=== PATIENT | female | born 1980 | race Caucasian/White ===

== ENCOUNTER 2019-05-30 06:05 | Observation (INO) | payer SELFPAY ==
[~2019-05-30] VITALS: Ht 165.1 cm; Wt 52.5 kg
[~2019-05-30 06:05] MED LIST: BACLOFEN10 MG PO; BLEPH-105 ML OS; BLEPHAMIDE EYE D5 ML OS; BUPROPION HCL200 MG PO; CEPHALEXIN500 MG PO; DULCOLAX STOOL100 MG PO; FLONASE2 SPRAY NS; HYDROCODON-ACE1 EA11 PO; IBUPROFEN600 MG PO; LEXAPRO10 MG PO; LIDOCAINE700 MG TOP; MULTIVITAMINS1 EAC7 PO; OXYCODONE HCL5 MG PO; PAMELOR10 MG PO; PEPCID20 MG PO; POTASSIUM CHLO20 ME1 PO; PSEUDOEPHEDRINE PO; PSEUDOEPHEDRINE30 MG PO; SALSALATE500 MG PO; SINGULAIR10 MG PO; XANAX XR3 MG PO; ZANAFLEX4 M1 PO; ZANTAC150 MG PO
[2019-05-30] MEDS ORDERED: EXCEDRIN EXTRA1 EAC1 PO (06:18)
--- NOTE | 2019-05-30 10:58 | NUR ---
IV SITE INTACT, NO REDNESS OR SWELLING NOTED, FLUSHES EASILY. PT REMAINS SLEEPING/OBTUNDED WITH TRANSFER FROM [facility] TO BED. PT SLIGHTLY HELPFUL WITH ROLLING TO ONE SIDE, HAS NOT OPENED EYES. VITALS ARE WNL.
--- NOTE | 2019-05-30 13:08 | NUR ---
PT SLEEPING QUIETLY, VITALS WNL, RESP EVEN AND UNLABORED, NO VISABLE DISTRESS NOTED.
--- NOTE | 2019-05-30 15:00 | NUR ---
PT ASSISTED UP TO THE BEDSIDE COMMODE TO VOID. PT ABLE TO CLEAN SELF. ONE PERSON ASSIST BACK TO BED. PT DENIES PAIN, NAUSEA, AND SOB AT THIS TIME. PT ALERT AND ORIENTED X4, SOMEWHAT FLAT AFFECT. PT REPORTS FEELING WEAK. SLIGHT BRUISE NOTED ON PT FOREHEAD, PT REPORTS "I MUST HAVE HIT MY HEAD WHEN I PASSED OUT"
--- NOTE | 2019-05-30 15:19 | NUR ---
Attempted to meet with pt for Case management assessment. She has difficulty responding and does not open eyes. Marilyn head yes or no to some questions. She does not answer most questions, marilyn head "yes" when asked if I may call her roommate for information. Called and spoke with Maya Murray. She states Brittany was residing in the house when Maya moved in with her boyfriend in March. She states Brittany is in the process of moving out.She isn't sure where she is moving. Brittany's boyfriend went to [facility] last week and he supported her. She states she and her friends found her down in the bathroom and she had stated earlier she had bloody diarrhea. She denies seeing Brittany use any DME. She does not think Brittany currently is employed. Maya Murray [phone]
--- NOTE | 2019-05-30 17:28 | NUR ---
In and spoke with Brittany who is now awake. States she is moving to [facility] for women with history of A&D use. States she was using prior to going as they drug test. States she was placed on probation last week and her financial aids officer is Alanna Disla. She has four children and they live with her ex. Does not have a PCP or current insurance. Was going to get OHP today, but was admitted to the hospital. Uses [facility] for her pharmacy. Emergency contact is her mother Yuki Villa [phone]. Will make a referral to [facility]Eli [facility]roncos[facility] for PCP and assistance with OHP.
--- NOTE | 2019-05-30 18:12 | NUR ---
PT IS AWAKE AND TALKING TO HER FRIEND AT THE BEDSIDE. PT IS CALM AND APPROPRIATE. PT HAS ALSO TALKED ON THE PHONE WITH HER MOTHER EARLIER THIS SHIFT.
--- NOTE | 2019-05-30 19:30 | NUR ---
REPORT RECEIVED FROM KAREEM MERCER. PT HAS RECENTLY GOTTEN UP TO BSC TO VOID, HR WENT FROM 80'S TO 115 WHEN UP THEN QUICKLY BACK TO 80'S WHEN IN BED. DENIES NEEDS/PAIN/NAUSEA AT THIS TIME, EATING SOME JELLO.
--- NOTE | 2019-05-30 20:16 | NUR ---
VISITOR IN TO SEE PT, PT CONT TO DENY NEEDS AT THIS TIME.
--- NOTE | 2019-05-31 00:15 | NUR ---
VISITOR IN TO SEE PT BUT PT SLEEPING.
--- NOTE | 2019-05-31 00:50 | NUR ---
UP TO BSC TO VOID THEN BACK TO BED, STATES SHE FEELS SLIGHTLY DIZZY WHEN UP, BACK TO BED. HR WENT FROM 80'S TO 118 WHILE UP AND BACK DOWN ONCE IN BED.
--- NOTE | 2019-05-31 02:00 | NUR ---
PT CONT TO SLEEP, RESTFUL, HR 70'S.
--- NOTE | 2019-05-31 04:08 | NUR ---
PT CONT TO SLEEP, HR 70'S RR 16.
--- NOTE | 2019-05-31 04:45 | NUR ---
UP TO BSC TO VOID AND BACK TO BED. DENIES PAIN/NAUSEA, STATES SHE IS HUNGRY AND LOOKING FORWARD TO BREAKFAST WANTS TO GO BACK TO SLEEP FOR NOW. HR UP TO 110 WHEN UP THEN DOWN TO 80S IN BED.
--- NOTE | 2019-05-31 07:30 | NUR ---
PATIENT RESTING IN BED AT THIS TIME. PATIENT DENEIS ANY NEEDS. CALL LIGHT IN REACH. WILL CONINUE TO CLOSELY MONITOR.
--- NOTE | 2019-05-31 09:30 | NUR ---
PATIENT RESTING IN BED. PATIENT DIET ADVANCED PER MD PAYNE. BREAKFAST ORDERED. PATIENT UP TO THE CAMMODE WITH NO ISSUES. FRESH WATER PROVIDED AT THE BEDSIDE. WILL CONTINUE TO CLOSELY MONITOR.
--- NOTE | 2019-05-31 09:30 | NUR ---
PATIENT ASSESSMENT COMPLETED. PATIENT DENEIS ABD PAIN. BOWEL TONES ACTIVE. BREKFAST ORDERED. BREATH SOUNDS CLEAR. NO BM SINCE ADMISSION. PATIENT DENEIS SOB, NAUSEA, AND DIZZINESS. NO OTHER NEEDS AT THIS TIME. WILL CONTINUE TO CLOSELY MONITOR.
--- NOTE | 2019-05-31 11:45 | NUR ---
WALKED WITH PATIENT IN THE HALLWAY PER MD PAYNES REQUEST. PATIENT WAS INITIALLY DIZZY, BUT RESOLVED WHILE WALKING. PATIENT DENIES ABD PAIN OR CRAMPING. PATIENT HAS NOT HAD ANY BLEEDING VIA RECTUM SINCE ADMISSION. PATIENT REPORT CHRONIC HEADACHES AND REQUESTING EXCEDERINE. PER MD PAYNE PATIENT MAY HAVE EXCEDERINE FOR HEADACHE. NO OTHER NEEDS AT THIS TIME. WILL CONTINUE TO CLOSELY MONITOR.
--- NOTE | 2019-05-31 12:28 | NUR ---
MD PAYNE IN TO SEE PATIENT. PATIENT TOLERATED WALKING AND HAS HAD NO BLEEDING SINCE ADMISSION. PATIENT WILL DISCHARGE HOME. PATIENT IS AGREEABLE TO PLAN. PATIENT HAS FAMILY AT THE BEDSIDE AT THIS TIME. EXCEDERINE PROVIDED FOR CHRONIC MIGRAINES. LUNCH AT THE BEDSIDE. NO OTHER NEEDS AT THIS TIME. WILL CONTINUE TO CLOSELY MONITOR.
--- NOTE | 2019-05-31 13:40 | NUR ---
DISCHARGE INSTRUCTIONS GIVEN TO PATIENT. PRINTED INFORMATION FOR THE CLINIC LOCATED HERE AT THE HOSPITAL PER MD PAYNE. PHONE NUMBER AND HOURS PROVIDED FOR PATIENT TO ESTABLISH PCP ON DISCHRAGE. IV DCD. ALL BELONGINGS SENT WITH PATIENT. OFFERED PATIENT THE FLU VACINE AND PATIENT REFUSED AND STATED "NO I DON'T WANT IT, IT ALWAYS MAKES ME SO SICK". NO OTHER NEEDS ON DISCHARGE. CALLED FOR A WHEELCHAIR RIDE TO THE LOBBY. FRIEND AT THE BEDSIDE TO GIVE HER A RIDE HOME.
--- NOTE | 2019-05-31 13:45 | NUR ---
PATIENT TAKEN TO FRONT IN WHEELCHAIR. PATIENT THEN ABLE TO AMBULATE FROM THERE. ALL BELONGINS SENT WITH PATIENT. IV DCD PRIOR TO DISCHARGE.
== END 2019-05-31 13:45 | disposition home or self-care (01) ==
LOC: ED 06:05 → CCU 06:07
PROVIDERS: ADMIT Internal Medicine
DX: K92.2 Gastrointestinal hemorrhage, unspecified (principal); R55 Syncope and collapse; F17.200 Nicotine dependence, unspecified, uncomplicated; G43.909 Migraine, unspecified, not intractable, without status migrainosus; F19.10 Other psychoactive substance abuse, uncomplicated; Z79.899 Other long term (current) drug therapy; Z85.41 Personal history of malignant neoplasm of cervix uteri; Z79.82 Long term (current) use of aspirin; Z88.0 Allergy status to penicillin; Z88.5 Allergy status to narcotic agent; Z88.2 Allergy status to sulfonamides; Z88.8 Allergy status to other drugs, medicaments and biological substances
CPT/HCPCS: 36415; 74177; 80048; 80053; 81001; 83735; 85025; 85610; 85730; 86850; 86900; 86901; 86920; 87088; 96361; 96376; 99285-25; C9113; G0378; J3480; J7030; J7121; Q9967

== ENCOUNTER 2020-10-03 00:59 | Emergency (ER) | payer OTHER ==
[~2020-10-03] VITALS: Ht 165.1 cm; Wt 61.2 kg
[~2020-10-03 00:59] MED LIST changes: +EXCEDRIN EXTRA1 EAC1 PO
== END 2020-10-03 01:30 | disposition home or self-care (01) ==
LOC: ED 00:59
DX: S60.221A Contusion of right hand, initial encounter (principal); G43.909 Migraine, unspecified, not intractable, without status migrainosus; F17.200 Nicotine dependence, unspecified, uncomplicated; Z88.0 Allergy status to penicillin; Z88.5 Allergy status to narcotic agent; Z88.2 Allergy status to sulfonamides; Z88.1 Allergy status to other antibiotic agents; W10.9XXA Fall (on) (from) unspecified stairs and steps, initial encounter
CPT/HCPCS: 73130; 99283-25

== ENCOUNTER 2023-04-26 16:40 | Emergency (ER) | payer OTHER ==
[~2023-04-26] VITALS: Ht 165.1 cm; Wt 64.9 kg
[2023-04-26 17:14] VITALS: BP 120/90
== END 2023-04-26 17:12 | disposition home or self-care (01) ==
LOC: ED 16:40
DX: S61.213A Laceration without foreign body of left middle finger without damage to nail, initial encounter (principal); F17.200 Nicotine dependence, unspecified, uncomplicated; Z23 Encounter for immunization; Z88.0 Allergy status to penicillin; Z88.1 Allergy status to other antibiotic agents; Z88.2 Allergy status to sulfonamides; Z88.5 Allergy status to narcotic agent; Z88.8 Allergy status to other drugs, medicaments and biological substances; X58.XXXA Exposure to other specified factors, initial encounter
CPT/HCPCS: 12001; 90471; 90715; 99282